=== PATIENT | male | born 1965 | race Hispanic/Latino ===

== ENCOUNTER 2018-04-24 08:40 | Day surgery (SDC) | payer OTHER ==
[2018-04-23 15:42] VITALS: BP 140/87
[~2018-04-24] VITALS: Ht 172.7 cm; Wt 86.5 kg
[2018-04-24] VITALS (15 sets, daily range): BP systolic 111–144; BP diastolic 70–88
[2018-04-24] MEDS: CEFAZOLIN SODIUM 1 GM VIAL IVP SCH ×2 (06:00→12:50)
[~2018-04-24 08:40] MED LIST: AMLO10TA7 PO; ATOR40TA69 PO; CHOL50004 PO; CLOP75TA14 PO; CYAN1000I IM; GABA-531 PO; KETO10TA2 PO; LISI40TA4 PO; LORA-705 PO; MIRT-73 PO; NITR0.4T50 SL; NIZO215C TP; PRAZ1CAP5 PO; SERT100T12 PO; [UNRECOGNIZED DRUG - CODE] MC
[2018-04-24] MEDS ORDERED: LACTATED RINGERS 1000ML 1,000 ML IV ONE (10:57)
[2018-04-24] MEDS ORDERED: LIDOCAINE PATCH TP (11:40)
[2018-04-24] MEDS ORDERED: CEFAZOLIN SODIUM 1 GM VIAL ONE (12:45)
[2018-04-24] MEDS ORDERED: EPINEPHRINE 1 MG/ML 30ML VIAL IJ ONE (12:45)
[2018-04-24] MEDS ORDERED: GLYCOPYRROLATE 1 MG/5 ML SYRINGE ONE (12:55)
[2018-04-24] MEDS ORDERED: PROPOFOL 10 MG/ML 20ML VIAL IV ONE (12:55)
[2018-04-24] MEDS ORDERED: ONDANSETRON HCL 4 MG/2 ML VIAL ONE ×2 (12:55→13:02)
[2018-04-24] MEDS ORDERED: DEXAMETHASONE SOD PHOSPHATE 10MG/ML 1ML VIAL ONE (12:55)
[2018-04-24] MEDS ORDERED: FENTANYL CITRATE PF 50 MCG/1 ML 2ML VIAL ONE ×3 (12:56→14:35)
[2018-04-24] MEDS ORDERED: MIDAZOLAM HCL 1 MG/ML 2ML VIAL ONE (12:56)
[2018-04-24] MEDS ORDERED: ROCURONIUM 10MG/1ML SYR 10 MG/ML ML ONE (12:56)
[2018-04-24] MEDS ORDERED: HYDR-4457 PO (14:57)
[2018-04-24] MEDS ORDERED: CEPH500B PO (14:57)
--- NOTE | 2018-04-24 15:50 | NUR ---
new received pt from [facility], s/p right shoulder arthroscopy 3 small telfa dressing with opsites to right shoulder, arm sling in place. bruisng and swelling noted to right shoulder. neurovascular checks wnl. pt had a nerve block states feels arm heavy. vs stable on arrival. pt denies any pain or discomforts. family at bedside.
--- NOTE | 2018-04-24 16:18 | NUR ---
dc dc instructions given to pt/ pts significant other with rx x 2, instructed to f/u with dr. to. photo copy of shoulder arthroscopy orders given and reviewed with pt and family, instructed on new med regimen and possible side effects of meds. piv removed. dressings dry and intact to shoulder. pt stable. right shoulder arm sling in place
--- NOTE | 2018-04-24 16:25 | NUR ---
dc pt dc home via [place], no distress noted. accompanied by family , denied any pain or discomforts.
== END 2018-04-24 16:25 | disposition home or self-care (01) ==
LOC: DAH 08:40
PROVIDERS: ATTEND Orthopaedic Surgery
DX: S43.491A Other sprain of right shoulder joint, initial encounter (principal); X58.XXXA Exposure to other specified factors, initial encounter; Y93.9 Activity, unspecified; Y92.89 Other specified places as the place of occurrence of the external cause; Y99.9 Unspecified external cause status; M75.41 Impingement syndrome of right shoulder; G89.29 Other chronic pain; Z88.8 Allergy status to other drugs, medicaments and biological substances; Z98.890 Other specified postprocedural states; I10 Essential (primary) hypertension; I73.9 Peripheral vascular disease, unspecified; G47.33 Obstructive sleep apnea (adult) (pediatric); F43.10 Post-traumatic stress disorder, unspecified; M06.9 Rheumatoid arthritis, unspecified; Z86.73 Personal history of transient ischemic attack (TIA), and cerebral infarction without residual deficits; Z79.899 Other long term (current) drug therapy
CPT/HCPCS: 29822; 29824; 29826; 64415; A4218; A4565; A4649 ×3; A4930 ×2; A6204; J0171; J0690; J1100; J2250; J2405 ×2; J2704; J3010 ×3; J3490; J7030; J7120